=== PATIENT | female | born 1965 | race Caucasian/White ===

== ENCOUNTER 2016-12-22 05:29 | Day surgery (SDC) | payer BC ==
--- NOTE | ~2016-12-22 | EGD ---
EGD REPORT [facility] [address] [place]. [address] NAME: TIFFANIE KAHN : 65 STATUS : REG [facility]#: [id number] AGE: 51 ADM/REG DATE : 12/22/16 MR#: [id number] REPORT SERV DATE: 12/22/16 DICTATED BY: KIMBERLY DAVIS DATE: 12/22/16 REPORT STATUS : Draft [facility]ANS[facility]IBED BY: [facility] DATE: 12/22/16 Endoscopy Center Patient Name: Tiffanie Kahn Date of : 1965 Attending MD: NADJA DAVIS MD Procedure Date No Time: 12/22/2016 Procedure: Colonoscopy Indications: Screening for colorectal malignant neoplasm, This is the patient's first colonoscopy Medicines: See the Anesthesia note for documentation of the administered medications Complications: No immediate complications. Estimated blood loss: None. Procedure: Pre-Anesthesia Assessment: - ASA Grade Assessment: II - A patient with mild systemic disease. - Prior to the procedure, a History and Physical was performed, and patient medications and allergies were reviewed. The patient's tolerance of previous anesthesia was also reviewed. The risks and benefits of the procedure and the sedation options and risks were discussed with the patient. All questions were answered, and informed consent was obtained. Prior Anticoagulants: The patient has taken no previous anticoagulant or antiplatelet agents. After reviewing the risks and benefits, the patient was deemed in satisfactory condition to undergo the procedure. After I obtained informed consent, the scope was passed under direct vision. Throughout the procedure, the patient's blood pressure, pulse, and oxygen saturations were monitored continuously. The PCF [id number] was introduced through the anus and advanced to the terminal ileum. The ileocecal valve, appendiceal orifice, terminal ileum and rectum were photographed. The entire colon was examined. The colonoscopy was performed without difficulty. The patient tolerated the procedure well. The quality of the bowel preparation was adequate. Findings: The perianal and digital rectal examinations were normal. The terminal ileum appeared normal. Non-bleeding internal hemorrhoids were found during retroflexion and were Grade I (internal hemorrhoids that do not prolapse). No other significant abnormalities were identified in a careful examination of the remainder of the colon. EGD REPORT [address] [address] NAME: TIFFANIE KAHN : [birth year] STATUS : REG [facility]#: [id number] AGE: 51 ADM/REG DATE : 12/22/16 MR#: [id number] REPORT SERV DATE: 12/22/16 DICTATED BY: KIMBERLY DAVIS DATE: 12/22/16 REPORT STATUS : Draft TRANSCRIBED BY: [employer] DATE: 12/22/16 Impression: - The examined portion of the ileum was normal. - Non-bleeding internal hemorrhoids. Recommendation: - Patient has a contact number available for emergencies. The signs and symptoms of potential delayed complications were discussed with the patient. Return to normal activities tomorrow. Written discharge instructions were provided to the patient. - Regular diet. - Discharge patient to home. - Continue present medications. - Repeat colonoscopy in 10 years for surveillance. Procedure Code(s): --- Professional --- 99871, Colonoscopy, flexible, proximal to splenic flexure; diagnostic, with or without collection of specimen(s) by brushing or washing, with or without colon decompression (separate procedure) Diagnosis Code(s): --- Professional --- K64.0, First degree hemorrhoids Z12.11, Encounter for screening for malignant neoplasm of colon CPT copyright 2013 [employer]. All rights reserved. The codes documented in this report are preliminary and upon electrical test technician review may be revised to meet current compliance requirements. NADJA DAVIS MD 12/22/2016 8:00 AM This report has been signed electronically. Number of Addenda: 0 Note Initiated On: 12/22/2016 7:38 AM Scope Withdrawal Time 0 hours 10 minutes 2 seconds [address] [place] [address]
--- NOTE | ~2016-12-22 | EGD ---
EGD REPORT [facility] [address] [place] [address] NAME: TIFFANIE KAHN : 65 STATUS : [facility] [place] PAT#: [id number] AGE: 51 ADM/REG DATE : 12/22/16 MR#: [id number] REPORT SERV DATE: 12/22/16 DICTATED BY: KIMBERLY DAVIS DATE: 12/22/16 REPORT STATUS : Draft [facility]ANSCRIBED BY: [facility] DATE: 12/22/16 Endoscopy Center Patient Name: Tiffanie Kahn Date of : 1965 Attending MD: NADJA DAVIS MD Procedure Date No Time: 12/22/2016 Procedure: Upper GI endoscopy Indications: Dyspepsia, Abdominal bloating, Nausea Medicines: See the Anesthesia note for documentation of the administered medications Complications: No immediate complications. Estimated blood loss: None. Procedure: Pre-Anesthesia Assessment: - ASA Grade Assessment: II - A patient with mild systemic disease. - Prior to the procedure, a History and Physical was performed, and patient medications and allergies were reviewed. The patient's tolerance of previous anesthesia was also reviewed. The risks and benefits of the procedure and the sedation options and risks were discussed with the patient. All questions were answered, and informed consent was obtained. Prior Anticoagulants: The patient has taken no previous anticoagulant or antiplatelet agents. After reviewing the risks and benefits, the patient was deemed in satisfactory condition to undergo the procedure. After obtaining informed consent, the endoscope was passed under direct vision. Throughout the procedure, the patient's blood pressure, pulse, and oxygen saturations were monitored continuously. The GIF H190 [id number] was introduced through the mouth, and advanced to the second part of duodenum. The upper GI endoscopy was accomplished without difficulty. The patient tolerated the procedure well. Findings: The examined duodenum was normal. Biopsies were taken with a cold forceps for histology. The entire examined stomach was normal. Biopsies were taken with a cold forceps for histology. The cardia and gastric fundus were normal on retroflexion. The examined esophagus was normal. Impression: - Normal examined duodenum. Biopsied. - Normal stomach. Biopsied. - Normal esophagus. EGD REPORT [address] [address] NAME: TIFFANIE KAHN : [birth year] STATUS : [facility] [place] PAT#: [id number] AGE: 51 ADM/REG DATE : 12/22/16 MR#: [id number] REPORT SERV DATE: 12/22/16 DICTATED BY: KIMBERLY DAVIS DATE: 12/22/16 REPORT STATUS : Draft TRANSCRIBED BY: [employer] DATE: 12/22/16 Recommendation: - Patient has a contact number available for emergencies. The signs and symptoms of potential delayed complications were discussed with the patient. Return to normal activities tomorrow. Written discharge instructions were provided to the patient. - Regular diet. - Discharge patient to home. - Continue present medications. - Await pathology results. Procedure Code(s): --- Professional --- 98186, Esophagogastroduodenoscopy, flexible, transoral; with biopsy, single or multiple Diagnosis Code(s): --- Professional --- K30, Functional dyspepsia R14.0, Abdominal distension (gaseous) R11.0, Nausea CPT copyright 2013 [employer]. All rights reserved. The codes documented in this report are preliminary and upon bakery assistant review may be revised to meet current compliance requirements. Attending Participation: I personally performed the entire procedure. NADJA DAVIS MD 12/22/2016 7:38 AM This report has been signed electronically. Number of Addenda: 0 Note Initiated On: 12/22/2016 7:24 AM Scope Withdrawal Time 0 hours 0 minutes 0 seconds [address] [place] [address]
[~2016-12-22 05:29] MED LIST: GABAPENTIN; INSULIN PUMP; NEUR600 PO
== END 2016-12-22 23:59 | disposition home or self-care (01) ==
LOC: DMU 05:29
PROVIDERS: Internal Medicine Gastroenterology
PROC: 0DJD8ZZ Inspection of Lower Intestinal Tract, Via Natural or Artificial Opening Endoscopic (ICD-10-PCS; 2016-12-22)
PROC: 0DJD8ZZ Inspection of Lower Intestinal Tract, Via Natural or Artificial Opening Endoscopic (ICD-10-PCS; 2016-12-22)
PROC: 0DB68ZX Excision of Stomach, Via Natural or Artificial Opening Endoscopic, Diagnostic (ICD-10-PCS; principal; 2016-12-22 07:00)
PROC: 0DB98ZX Excision of Duodenum, Via Natural or Artificial Opening Endoscopic, Diagnostic (ICD-10-PCS; 2016-12-22 07:00)
DX: Z12.11 Encounter for screening for malignant neoplasm of colon (principal); K29.50 Unspecified chronic gastritis without bleeding; K64.0 First degree hemorrhoids; K30 Functional dyspepsia; M19.90 Unspecified osteoarthritis, unspecified site; E11.9 Type 2 diabetes mellitus without complications; Z79.899 Other long term (current) drug therapy; Z85.038 Personal history of other malignant neoplasm of large intestine; Z88.5 Allergy status to narcotic agent
CPT/HCPCS: 82962; 84703; 88305; 88342